=== PATIENT | male | born 1970 | race Caucasian/White ===

== ENCOUNTER 2023-01-23 10:27 | Emergency (ER) | payer MEDICAID, OTHER ==
[~2023-01-23] VITALS: Ht 172.7 cm; Wt 79.3 kg
[2023-01-23 10:43] VITALS: BP 113/73; PULSE 72; RESP 16; TEMP 98.4; O2SAT 99
[2023-01-23] MEDS ORDERED: ONDANSETRON 4MG ODT PO STA (11:41)
[2023-01-23] MEDS ORDERED: MAGNESIUM/ALUMINUM HYDROXIDE/SIMETHICONE 30ML UDC PO STA (11:41)
[2023-01-23 12:00] LABS: BASOPHILS % 0.4 % (0.0-2.0); EOSINOPHILS % 0.3 % (0.0-5.0); HEMATOCRIT. 46.1 % (42.0-52.0); LYMPHOCYTES % 10.8 % (20.0-50.0); MEAN CORPUSCULAR HEMOGLOBIN 30.6 pg (28.0-32.0); MEAN CORPUSCULAR HGB CONC 34.7 g/dL (31.0-37.0); MEAN CORPUSCULAR VOLUME 87.9 fL (80.0-94.0); MEAN PLATELET VOLUME 6.7 fl (7.4-10.4); MONOCYTES % 3.6 % (2.0-8.0); NEUTROPHILS % 84.9 % (40.0-76.0); PLATELET 305 x1000/uL (130-400); RED BLOOD CELL COUNT 5.24 mill/uL (4.7-6.1); RED CELL DISTRIBUTION WIDTH 13.3 % (11.6-14.6); WHITE BLOOD COUNT 8.8 x1000/uL (4.5-11.0)
[2023-01-23 12:08] LABS: CHLORIDE 106 mEq/L (98-107); INDEX HEMOLYSI 1 (1-3); INDEX ICTERIC 1 (1-4); INDEX LIPEMIC 1 (1-3); POTASSIUM 4.2 mEq/L (3.5-5.1); SODIUM 137 mEq/L (136-145)
[2023-01-23 12:16] LABS: ALANINE AMINOTRANSFERASE 33 IU/L (13-61); ALBUMIN 4.2 g/dL (3.4-5.0); ASPARTATE AMINOTRANSFERASE 23 IU/L (15-37); BILIRUBIN TOTAL 0.3 mg/dL (0.1-1.0); CALCIUM 8.8 mg/dL (8.5-10.1); CARBON DIOXIDE 31 mEq/L (21-32); CREATININE 0.9 mg/dL (0.6-1.3); GLUCOSE 131 mg/dL (70-105); PROTEIN TOTAL 7.7 g/dL (6.0-8.3); UREA NITROGEN BLOOD 14 mg/dL (7-21)
[2023-01-23] MEDS ORDERED: OMEP20CA14 PO (13:43)
[2023-01-23] MEDS ORDERED: FAMO-135 MT (13:44)
== END 2023-01-23 15:14 | disposition home or self-care (01) ==
LOC: ER 10:27
DX: K29.70 Gastritis, unspecified, without bleeding (principal)
CPT/HCPCS: 99284; 80053; 83690; 85025; 36415; 93005; Q0162

== ENCOUNTER 2024-04-17 16:19 | Emergency (ER) | payer MEDICAID ==
[~2024-04-17] VITALS: Ht 170.2 cm; Wt 78.0 kg
[~2024-04-17 16:19] MED LIST: FAMO-135 MT; OMEP20CA14 PO
[2024-04-17 16:23] VITALS: O2SAT 99
[2024-04-17 18:03] LABS: BASOPHILS % 1.2 % (0.0-2.0); HEMATOCRIT. 45.1 % (42.0-52.0); HEMOGLOBIN. 15.4 g/dL (14.0-18.0); LYMPHOCYTES % 28.2 % (20.0-50.0); MEAN CORPUSCULAR HEMOGLOBIN 30.5 pg (28.0-32.0); MEAN CORPUSCULAR HGB CONC 34.1 g/dL (31.0-37.0); MEAN CORPUSCULAR VOLUME 89.4 fL (80.0-94.0); MEAN PLATELET VOLUME 7.1 fl (7.4-10.4); MONOCYTES % 9.7 % (2.0-8.0); NEUTROPHILS % 54.9 % (40.0-76.0); PLATELET 371 x1000/uL (130-400); RED BLOOD CELL COUNT 5.04 mill/uL (4.7-6.1); RED CELL DISTRIBUTION WIDTH 13.5 % (11.6-14.6); WHITE BLOOD COUNT 6.4 x1000/uL (4.5-11.0)
[2024-04-17 18:09] LABS: CHLORIDE 107 mEq/L (98-107); POTASSIUM 4.3 mEq/L (3.5-5.1); SODIUM 142 mEq/L (136-145)
[2024-04-17 18:10] LABS: CALCIUM 9.9 mg/dL (8.7-10.4); CARBON DIOXIDE 27 mEq/L (21-32)
[2024-04-17 18:15] LABS: CREATININE 1.4 mg/dL (0.6-1.3); GLUCOSE 108 mg/dL (70-105); UREA NITROGEN BLOOD 16 mg/dL (9-23)
[2024-04-17 18:17] LABS: TROPONIN I HIGH SENSITIVITY < 4 ng/L (3.0-53)
[2024-04-17] MEDS ORDERED: IBUP-2029 MT (19:11)
[2024-04-17 19:45] VITALS: BP 125/67; PULSE 97; RESP 18; TEMP 36.89184; O2SAT 99
== END 2024-04-17 19:50 | disposition home or self-care (01) ==
LOC: ER 16:19
DX: M17.0 Bilateral primary osteoarthritis of knee (principal); I49.9 Cardiac arrhythmia, unspecified
CPT/HCPCS: 36415; 71045; 80048; 84484; 85025; 93005; 99285